=== PATIENT | male | born 2000 | race Two or more races ===

== ENCOUNTER 2024-02-03 10:03 | Outpatient (CLI) | payer OTHER | END 2024-02-03 10:14 | disposition home or self-care (01) | LOC: RAD 10:03 | PROVIDERS: ATTEND Podiatrist Foot Surgery | DX: M77.31 Calcaneal spur, right foot (principal); M77.32 Calcaneal spur, left foot ==

== ENCOUNTER 2024-03-25 13:38 | Outpatient (CLI) | payer OTHER | END 2024-03-25 13:51 | disposition home or self-care (01) | LOC: RAD 13:38 | DX: S92.301A Fracture of unspecified metatarsal bone(s), right foot, initial encounter for closed fracture (principal) ==

== ENCOUNTER 2024-04-24 13:19 | Outpatient (CLI) | payer OTHER | END 2024-04-24 13:23 | disposition home or self-care (01) | LOC: RAD 13:19 | PROVIDERS: ATTEND Podiatrist Foot Surgery | DX: M20.41 Other hammer toe(s) (acquired), right foot (principal); M20.42 Other hammer toe(s) (acquired), left foot ==